=== PATIENT | male | born 1990 | race African-American/Black ===

== ENCOUNTER 2023-03-13 19:51 | Emergency (ER) | payer BC ==
[~2023-03-13 19:51] MED LIST: Iopamidol 370 76% 100 ML VIAL ONE
[2023-03-13] MEDS ORDERED: Ketorolac Tromethamine 30 MG/ML VIAL ONE (22:08)
[2023-03-13] MEDS ORDERED: Ondansetron PF 4 MG/2 ML Vial ONE (22:09)
[2023-03-13] MEDS ORDERED: Morphine 4 MG/ML VIAL ONE ×2 (22:09→23:44)
[2023-03-13 22:27] LABS: Hematocrit 45.7 % (42.0-52.0); Manual Diff?? YES; Mean Corpuscular HGB CONC 32.8 g/dL (32.0-36.0); Mean Corpuscular Hemoglobin 29.3 pg (27.0-31.0); Mean Corpuscular Volume 89.3 fl (78.0-98.0); Platelet Count 238 10x3/uL (130-400); RBC Distribution Width 14.9 % (11.5-14.5); Red Blood Cell (RBC) Count 5.12 mill/uL (4.70-6.10); White Blood Cell (WBC) Count 15.1 10x3/uL (4.8-10.8)
[2023-03-13 22:28] LABS: Delete Auto Diff?? YES
[2023-03-13 22:52] LABS: Band 1 % (5-11); CellaVision Operator ID lab.abc; Eosinophils 1 % (0-10); Lymphocytes 36 % (21-51); Monocytes 6 % (0-10); Neutrophil 52 % (42-75); Platelet Adequacy Comment Platelets Normal; RBC Morphology Within Normal Limits; Reactive Lymphocytes 3 % (0-10); Total Cell Count 100
[2023-03-13 22:58] LABS: ALT (SGPT) 21 U/L (8-55); AST (SGOT) 24 U/L (5-34); Albumin 4.3 g/dL (3.5-5.0); Alkaline Phosphatase 69 U/L (40-110); Anion Gap 14 mmol/L (10-20); BUN (Urea Nitrogen) 11 mg/dL (8.9-20.6); Bilirubin, Total 0.7 mg/dL (0.2-1.2); Calc. Creatinine Clearance 0 mL/min (70-130); Calcium 9.3 mg/dL (7.8-10.44); Carbon Dioxide 23 mmol/L (22-29); Chloride 105 mmol/L (98-107); Estimated GFR 80; Globulin 3.6 g/dL (2.4-3.5); Glucose 87 mg/dL (70-105); Protein, Total 7.9 g/dL (6.0-8.3); Sodium 138 mmol/L (136-145)
[2023-03-13] MEDS ORDERED: Cefepime 2 GM VIAL ONE (23:03)
[2023-03-13] MEDS ORDERED: Sodium Chloride 0.9% 100 ML ONE (23:03)
[2023-03-13 23:22] LABS: Bacteria/HPF None Seen HPF (None Seen); Bilirubin Negative (Negative); Blood, Urine Negative (Negative); CAUTI Indications for Culture Pelvic or flank pain; Clarity Clear (Clear); Glucose, Urine (Dipstick) Normal (Negative); Ketone, Urine Negative (Negative); Leukocyte Negative Leu/uL (Negative); Nitrite Negative (Negative); Protein, Urine (Dipstick) 10 mg/dL (Neg-Trace); RBC/HPF 0-3 HPF (0-3); Specific Gravity, Urine 1.054 (1.002-1.036); Squamous Epithelial None Seen HPF (0-3); Urobilinogen Normal mg/dL (Less than 2); WBC/HPF 0-3 HPF (0-3)
[2023-03-13 23:23] LABS: Urine Culture Reflex No No
[2023-03-13] MEDS ORDERED: LORazepam 2 MG/ML SYR.(CARPUJECT) ONE (23:44)
== END 2023-03-14 00:50 | disposition home or self-care (01) ==
LOC: ERS 19:51
DX: K61.0 Anal abscess (principal)
CPT/HCPCS: 36415; 46050; 72193; 80053; 81001; 83605; 85025; 87040; 96365; 96375; 96376; J0692; J1885; J2060; J2270; J2405; J3490; Q9967